=== PATIENT | female | born 1985 | race Caucasian/White ===

== ENCOUNTER 2018-03-05 12:14 | Outpatient (CLI) | payer MEDICAID | END 2018-03-05 15:45 | disposition home or self-care (01) | LOC: OBT 12:14 → L-D 12:14 → OBT 15:45 | DX: O62.9 Abnormality of forces of labor, unspecified (principal); O26.893 Other specified pregnancy related conditions, third trimester; R00.2 Palpitations; Z3A.31 31 weeks gestation of pregnancy | CPT/HCPCS: 76815; 76817; 76818; 93005 ==